=== PATIENT | female | born 1945 | race Caucasian/White ===

== ENCOUNTER 2017-09-12 10:39 | Emergency (ER) | payer MEDICARE, OTHER ==
[2017-09-12 10:48] VITALS: BP 152/72
--- NOTE | 2017-09-12 11:18 | UC ---
Respiratory Complaint HPI - History of Current Complaint Chief Complaint: UCGeneralIllness Stated Complaint: URI Time Seen by Provider: 09/12/17 10:55 Hx Obtained From: Patient Onset/Duration: Gradual Onset - had upper respiratory symps for 1 week, last night cough got much worse and could not sleep. no fever but can hear "noise" in chest Timing: Constant Severity Initially: Mild Severity Currently: Moderate Character: Cough: Nonproductive Aggravating Factors: Deep Breaths, Recumbent Position Alleviating Factors: Nothing Associated Signs And Symptoms: Positive: URI, Nasal Congestion. Negative: Chills, Wheezing, Hemoptysis, Calf Pain - Allergies/Home Medications Allergies/Adverse Reactions: Allergies Allergy/AdvReac Type Severity Reaction Status Date / Time Amoxicillin [From Augmentin] Allergy Stomach Verified 09/12/17 10:50 Cramps Clavulanic Acid Allergy Stomach Verified 09/12/17 10:50 [From Augmentin] Cramps Levofloxacin [From Levaquin] Allergy Swelling Verified 09/12/17 10:48 Of Face,Lips,& Throat Home Medications: Home Medications Acetaminophen TAB* [Tylenol TAB*] 1 tab PO DAILY PRN 09/12/17 [History Confirmed 09/12/17] Aleve 1 tab PO BID PRN 09/12/17 [History Confirmed 09/12/17] PMH/Surg Hx/FS Hx/Imm Hx Previously Healthy: Yes - Surgical History Surgical History: Yes Surgery Procedure, Year, and Place: tubal ligation - Family History Known Family History: Positive: None - Social History Occupation: Retired Lives: With Family Alcohol Use: 1 glass every other day of wine Alcohol Amount: 1 glass of wine every other day with dinner Substance Use Type: None Smoking Status (MU): Former Smoker Length of Time of Smoking/Using Tobacco: smioked in early 20s - Immunization History Most Recent Influenza Vaccination: 09/11 Review of Systems Constitutional: Negative Skin: Negative Respiratory: Cough Cardiovascular: Negative Genitourinary: Negative Musculoskeletal: Negative Neurological: Negative Psychological: Negative All Other Systems Reviewed And Are Negative: Yes Physical Exam Triage Information Reviewed: Yes Appearance: Well-Appearing, No Pain Distress, Well-Nourished Vital Signs: Initial Vital Signs Temp 98.2 F 09/12/17 10:43 Pulse 69 09/12/17 10:43 Resp 18 11/18/17 10:43 BP 152/72 09/12/17 10:43 Pulse Ox 99 09/12/17 10:43 Vital Signs Reviewed: Yes Eyes: Positive: Conjunctiva Clear ENT: Positive: Pharynx normal, Nasal congestion, Nasal drainage. Negative: Sinus tenderness Neck: Positive: Supple, Nontender, No Lymphadenopathy Respiratory: Positive: No respiratory distress, Rhonchi Cardiovascular Exam: Normal Cardiovascular: Positive: RRR, Pulses Normal, Brisk Capillary Refill Musculoskeletal Exam: Normal Neurological Exam: Normal Psychological Exam: Normal Skin Exam: Normal Skin: Negative: rashes UC Diagnostic Evaluation - Laboratory O2 Sat by Pulse Oximetry: 99 Respiratory Course/Dx - Differential Dx/Diagnosis Differential Diagnosis/HQI/PQRI: Bronchitis, Influenza, Lower Resp Infection Provider Diagnoses: bronchitis Discharge - Discharge Plan Condition: Stable Disposition: HOME Prescriptions: Albuterol HFA INHALER* [Ventolin HFA Inhaler*] 1 - 2 puff INH Q6H PRN #1 mdi PRN Reason: Shortness Of Breath Azithromycin TAB* [Zithromax TAB (Z-TIM) 250 mg #6 tabs] 2 tab PO .TODAY, THEN 1 DAILY #1 tim Patient Education Materials: Acute Bronchitis (ED) Referrals: Mckinley Hilario MD [Primary Care Provider] - 2 Days (for recheck) Additional Instructions: drink plenty of fluids Take antibiotic as prescribed use inhaler for shortness of breath Use over the counter cough syrup: guiafenesin and dextromethoraphan (Robitussin)
== END 2017-09-12 11:45 | disposition home or self-care (01) ==
LOC: UCEAST 10:39
DX: J40 Bronchitis, not specified as acute or chronic (principal); Z87.891 Personal history of nicotine dependence; Z72.89 Other problems related to lifestyle
CPT/HCPCS: 99212; G0463

== ENCOUNTER 2017-10-02 16:07 | Emergency (ER) | payer MEDICARE, OTHER ==
--- NOTE | 2017-10-02 21:12 | RAD ---
Indication: Headaches, head injury. CT of the brain was performed without IV contrast. Ventricular structures are midline. No midline shift is noted. The extraction spaces are unremarkable. There is no evidence of intracranial mass or hemorrhage. No other high or low density lesions are identified. Mastoid air cells and paranasal sinuses are unremarkable. IMPRESSION: No intracranial mass or hemorrhage is noted.
[2017-10-02 21:37] VITALS: BP 157/78
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
== END 2017-10-02 21:37 | disposition home or self-care (01) ==
LOC: ED 16:07
DX: S06.0X9A Concussion with loss of consciousness of unspecified duration, initial encounter (principal); V89.2XXA Person injured in unspecified motor-vehicle accident, traffic, initial encounter; Y92.9 Unspecified place or not applicable; Z87.891 Personal history of nicotine dependence
CPT/HCPCS: 70450

== ENCOUNTER 2018-07-06 06:39 | Day surgery (SDC) | payer MEDICARE, OTHER ==
[~2018-07-06 06:39] MED LIST: Acetaminophen TAB* 325 MG PO PRN; Buffered Lidocaine 0.9% SYRIN* 5 ML/SYR SYRINGE INTRADERM ONE
[2018-07-06] MEDS ORDERED: fentaNYL* 50 MCG/ML 2 ML VIAL (100 MCG VIAL) ONE (07:34)
[2018-07-06] MEDS ORDERED: Midazolam* 1 MG/ML 2 ML VIAL (2 MG) ONE (07:34)
[2018-07-06 08:29] VITALS: BP 146/62
--- NOTE | 2018-07-06 08:53 | OP ---
DATE OF OPERATION: 07/06/18 [facility] DATE OF : 47 SURGEON: Dr. Tyler Russell. ESTIMATOR PAPERBOARD BOXES: None. ANESTHESIA: Topical with intravenous sedation. PRE-OP DIAGNOSIS: Cataract, left eye. POST-OP DIAGNOSIS: Cataract, left eye. OPERATIVE PROCEDURE: Phacoemulsification and cataract extraction with posterior chamber intraocular lens implant, left eye. COMPLICATIONS: None. BLOOD LOSS: None. DESCRIPTION OF PROCEDURE: The patient was brought to the operating room and received a small amount of intravenous sedation. A drop of Tetracaine was placed in the left eye. She was prepped and draped in the usual sterile fashion for ophthalmic surgery and attention was directed to the left eye where a speculum was placed. A paracentesis was created at the 5 o'clock position and 0.1 cc of 1 percent preservative-free Lidocaine was injected into the anterior chamber followed by DisCoVisc. The eye was digitally stabilized while a 2.75 mm keratome was used to create a triplanar clear corneal incision at the 3 o'clock position. A continuous curvilinear capsulorrhexis was created with a cystotome and Utrata forceps. BSS on a cannula was used to hydrodissect the lens from the capsule. Phacoemulsification was performed in a divide-and- conquer technique to create four fragments which were removed. Residual cortical material was removed with irrigation and aspiration. DisCoVisc was used to inflate the capsular bag and an AUOOTO 21.5 diopter lens was folded and inserted into the capsular bag. DisCoVisc was removed using irrigation and aspiration. BSS on a cannula was used to hydrate the corneal stroma and seal the wound. At the end of the case the pupil was round and the lens was centered. The eye was of normal pressure and the wound was water tight. The speculum was removed and topical Maxitrol ointment was placed on the surface of the eye. The eye was closed, patched and shielded and the patient was sent to the recovery room in stable condition with post operative instructions and follow-up appointment given. [id number]/[id number] #: [id number] [place]
[2018-07-06] MEDS ORDERED: Neomycin/Polymy/Dex OPHTH.OIN* 3.5 GM ONE (10:02)
[2018-07-06] MEDS ORDERED: Tetracaine 0.5% OPTH.SOL 4 ML* 1 DROP BTL ONE (10:02)
[2018-07-06] MEDS ORDERED: Tropicamide 1% OPTH.SOL* BTL ONE (10:02)
[2018-07-06] MEDS ORDERED: Ketorolac 0.5% OPHTH (NF) 0.5 % 5 ML BTL ONE (10:02)
[2018-07-06] MEDS ORDERED: Lidocaine 1%* 5 ML VIAL ONE (10:02)
[2018-07-06] MEDS ORDERED: Phenylephrine 2.5% OPTH.SOL* 2 ML BTL ONE (10:02)
[2018-07-06] MEDS ORDERED: Cyclopentolate 1% OPTH.SOL* 2 ML BTL ONE (10:02)
== END 2018-07-06 08:40 | disposition home or self-care (01) ==
LOC: OREAST 06:39
PROVIDERS: ATTEND Ophthalmology
DX: H25.12 Age-related nuclear cataract, left eye (principal); Z87.891 Personal history of nicotine dependence; E78.5 Hyperlipidemia, unspecified; J45.909 Unspecified asthma, uncomplicated; M19.90 Unspecified osteoarthritis, unspecified site
CPT/HCPCS: A9270-GY; J2250; J3010; V2632